=== PATIENT | male | born 1965 | race Two or more races ===

== ENCOUNTER 2025-05-26 10:47 | Outpatient (AMB) | payer BC, SELFPAY ==
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
[2025-05-26 11:07] VITALS: BP 143/87; PULSE 76; RESP 16; TEMP 36.7; O2SAT 94; BMI 34.3
== END 2025-05-26 11:29 | disposition home or self-care (01) ==
LOC: HODSRG 10:47
PROVIDERS: PCP Internal Medicine; Referring Provider Internal Medicine; Supervising Provider Surgery; Visit Provider Surgery
DX: Z01.818 Encounter for other preprocedural examination (principal); R19.4 Change in bowel habit
CPT/HCPCS: 99203; G0463

== ENCOUNTER 2025-06-17 06:40 | Day surgery (SDC) | payer BC, SELFPAY ==
[2025-06-16 13:24] VITALS: BMI 35.5
[2025-06-17] VITALS (10 sets, daily range): BP systolic 116–158; BP diastolic 68–90; PULSE 70–77; RESP 13–21; TEMP 36.7–36.9; O2SAT 93–100; BMI 35.0
[2025-06-17] MEDS: RINGERS LACTATED 500 ML 500 ML 20 ML IV (07:39)
[2025-06-17] MEDS: fentaNYL CIT INJ 50 mCg/ML AMP 2ML (ASD USE ONLY) IVP (07:46)
[2025-06-17] MEDS: MIDAZOLAM INJ 1 MG/ML VIAL 2 ML (ASD USE ONLY) 2 MG IVP (07:48)
--- NOTE | 2025-06-17 08:55 | SUR.PHASEII ---
attempted to call family at 0815, no answer. this nurse left a voicemail with information about the patient being ready to go home in about 15 min. pt is awake and resting in bed pt informed we were unable to get a hold of family. pt called family member for sweet pickle maker instructions. [id number] pt is in restroom getting dresses no complaints or concerns at this time 0857 pt is currently resting in wheelchair drinking a 7 up while waiting for family, pt denies questions or concerns.
== END 2025-06-17 09:11 | disposition home or self-care (01) ==
PROVIDERS: PCP Family Medicine; Referring Provider Surgery; Visit Provider Surgery
PROC: 0DBE8ZX Excision of Large Intestine, Via Natural or Artificial Opening Endoscopic, Diagnostic (ICD-10-PCS; CPT 45380; principal; 2025-06-17 08:30)
DX: D12.3 Benign neoplasm of transverse colon (principal); K57.30 Diverticulosis of large intestine without perforation or abscess without bleeding
CPT/HCPCS: 45380; A4649; J1200; J2250; J3010; J7120

== ENCOUNTER 2025-06-23 13:19 | Outpatient (AMB) | payer BC, SELFPAY ==
--- NOTE | 2025-06-23 15:21 | PD.GSCLVISIT ---
Med/Allergies Allergies & Medications Allergies No Known Allergies Allergy (Verified 06/17/25 06:57) MA Intake Visit Data Collection PCP or OBGYN visit in last 3 months: Yes Smoking Status Smoking Status: Never smoker Immunization / Flu Flu Vaccine in the Last 12 Months: Yes Flu Vaccine Exclusion Criteria: No Exclusion Criteria Past Medical History Past Medical History NEUROLOGIC: Negative Seizures CARDIAC: Positive Cardiac Disorders and Hypertension; Negative Congestive Heart Failure RESPIRATORY: Negative Chronic Obstructive Pulmonary Disease (COPD) GASTROINTESTINAL: Positive Gastrointestinal Disorders (Constipation) GENITOURINARY: Negative Renal Disease ENDOCRINE: Negative Endocrine Disorders, Diabetes Mellitus Type 1 or Diabetes Mellitus Type 2 HEMATOLOGIC: Negative Blood Disorders PSYCHO/SOCIAL: Positive Depression and Anxiety OTHER HISTORY: Negative Blood Transfusions or Anesthesia Reactions Social History SMOKING STATUS: Smoking status: Never smoker ALCOHOL: Alcohol Intake: Never HOUSING: Housing: House HPI HPI Narrative 60M referred for first colonoscopy due to constipation having televisit for results. Pt reports feeling well overall with no complaints; he was found to have sigmoid diverticulosis and one tubular adenoma <1cm ROS Review of Systems Systems Reviewed: All systems reviewed, normal except as documented Objective/Exam Narrative Physical exam: n/a due to televisit Results Colonoscopy and pathology reports reviewed Assessment & Plan Diagnosis / Problem List (1) Encounter to discuss colonoscopy results: Status: Acute Assessment & Plan: 60M s/p diagnostic colonoscopy 06/2025 with findings of sigmoid diverticulosis and one tubular adenoma, due for next surveillance colonoscopy in 7 years. Pt expressed understanding and is encouraged to reach out with concerns or questions Patient Portal Questionaires Social History Living Situation History Housing: House Tobacco History Smoking Status: Never smoker Alcohol History Alcohol Intake: Never Review of Systems Report any current symptoms Only answer those that you have currently: Past Medical History Past Medical History Have you ever been diagnosed with any of the following: Neurological Problems Seizures: No Cardiology Problems Congestive Heart Failure: No Hypertension: Yes Respiratory Problems Chronic Obstructive Pulmonary Disease (COPD): No Genital/Urinary Problems Renal Disease: No Endocrine Problems Diabetes Mellitus Type 1: No Diabetes Mellitus Type 2: No Psychologic Problems Depression: Yes Anxiety: Yes Other Problems Blood Transfusions: No Anesthesia Reactions: No
== END 2025-06-23 13:44 | disposition home or self-care (01) ==
PROVIDERS: PCP Internal Medicine; Referring Provider Internal Medicine; Supervising Provider Surgery; Visit Provider Surgery
DX: Z71.2 Person consulting for explanation of examination or test findings (principal); K57.30 Diverticulosis of large intestine without perforation or abscess without bleeding; D36.9 Benign neoplasm, unspecified site; I10 Essential (primary) hypertension
CPT/HCPCS: 99213; G0463